=== PATIENT | female | born 1930 | race Asian ===

== ENCOUNTER 2017-04-05 01:13 | Inpatient (IN) | payer OTHER ==
[~2017-04-05] VITALS: Ht 152.4 cm; Wt 37.8 kg
[2017-04-05] VITALS (9 sets, daily range): BP systolic 144–166; BP diastolic 65–76; PULSE 54–76; RESP 15–20; Ht 152.4 cm; Wt 37.8 kg
--- NOTE | 2017-04-05 01:21 | ERD ---
ER Documentation Chief Complaint Chief Complaint Chest congestion HPI The patient is a 87-year-old female, presenting to the ER because of chest congestion for the last 3 weeks, worse tonight. She was seen by her physician recently and treated with cough medication. She is not getting better, therefore the daughter brought her to the emergency department. She does not have chest pain, abdominal pain, vomiting. She does not smoke nor drink Past medical history: Dementia, hypertension, diabetes mellitus, dyslipidemia, CAD, history of CVA Surgical history: Cataract ROS All systems reviewed and are negative except as per history of present illness. Allergies Allergies: Coded Allergies: No Known Allergy (Unverified , 04/05/17) Physical Exam Vitals Vital Signs Date Time Temp Pulse Resp B/P Pulse Ox O2 Delivery O2 Flow Rate FiO2 04/05/17 03:02 56 18 100 Non Rebreather Mask 15.0 04/05/17 02:01 Non Rebreather 15 04/05/17 01:21 97.9 57 18 145/58 94 Physical Exam Const: Labored breathing Head: Atraumatic. Eyes: Normal Conjunctiva. ENT: Normal External Ears, Nose and Mouth. Neck: Full range of motion. No meningismus. Resp: Clear to auscultation bilaterally. Cardio: Regular rate and rhythm. Abd: Soft, non distended, normal bowel sounds, non tender. Skin: No petechiae or rashes. Back: No midline or flank tenderness. Ext: No cyanosis, or edema. Neur: Unable to perform due to her condition Psych: Unable to perform due to her condition. Result Diagram: 04/05/1721904/05/17 022 Results 24 hrs Laboratory Tests Test 04/05/17 01:49 04/05/17 02:14 04/05/17 02:20 04/05/17 02:35 Blood Gas Specimen Source Blood arterial Arterial Blood Date Drawn 04/05/2017 2:05:38 AM Arterial Blood pH (Temp corrected) 7.368 Arterial Blood pCO2 (Temp correct) 47.3mmhg Arterial Blood pO2 (Temp corrected) 40.1mmHG Arterial Blood HCO3 26.6mmol/L Arterial Blood Base Excess 0.9mmol/L Arterial Blood Oxygen Saturation 78.3mmHG Nima Test N/A Arterial Blood Gas Puncture Site Right Brachial Arterial Blood Carboxyhemoglobin 0.3% Arterial Blood Methemoglobin 0.1% Blood Gas A-a O2 Differential 625.6mmHg Oxyhemoglobin Percent 78.0% Total Hemoglobin 11.0g/dl Blood Gas Temperature 37.0C Blood Gas Modality MASK - NRB FiO2 100.0% Blood Gas Critical Value Read Back Jesus JEROME MD Blood Gas Notified Whom AA Blood Gas Notified Time 04/05/2017 2:19:33 AM Bedside Glucose 142mg/dL White Blood Count 6.310^3/ul Red Blood Count 3.2610^6/ul Hemoglobin 9.7g/dl Hematocrit 28.3% Mean Corpuscular Volume 86.8fl Mean Corpuscular Hemoglobin 29.8pg Mean Corpuscular Hemoglobin Concent 34.3g/dl Red Cell Distribution Width 13.5% Platelet Count 91827^3/UL Mean Platelet Volume 9.4fl Neutrophils % 61.5% Lymphocytes % 25.6% Monocytes % 10.0% Eosinophils % 2.1% Basophils % 0.5% Nucleated Red Blood Cells % 0.0/100WBC Neutrophils # 3.910^3/ul Lymphocytes # 1.610^3/ul Monocytes # 0.610^3/ul Eosinophils # 0.110^3/ul Basophils # 0.010^3/ul Nucleated Red Blood Cells # 0.010^3/ul Prothrombin Time 12.5Sec Prothrombin Time Ratio 1.0 INR International Normalized Ratio 0.93 Activated Partial Thromboplast Time 30.3Sec Sodium Level 141mmol/L Potassium Level 4.1mmol/L Chloride Level 103mmol/L Carbon Dioxide Level 32mmol/L Anion Gap 10 Blood Urea Nitrogen 21mg/dl Creatinine 1.31mg/dl Glucose Level 143mg/dl Lactic Acid Level 1.6mmol/L Calcium Level 10.6mg/dl Total Bilirubin 0.2mg/dl Direct Bilirubin 0.00mg/dl Indirect Bilirubin 0.2mg/dl Aspartate Amino Transf (AST/SGOT) 19IU/L Alanine Aminotransferase (ALT/SGPT) 31IU/L Alkaline Phosphatase 71IU/L Troponin I < 0.012ng/ml Total Protein 6.3g/dl Albumin 3.4g/dl Globulin 2.90g/dl Albumin/Globulin Ratio 1.17 Urine Color YELLOW Urine Clarity CLEAR Urine pH 7.0 Urine Specific [place] 1.010 Urine Ketones NEGATIVEmg/dL Urine Nitrite NEGATIVEmg/dL Urine Bilirubin NEGATIVEmg/dL Urine Urobilinogen NEGATIVEmg/dL Urine Leukocyte Esterase NEGATIVELeu/ul Urine Microscopic RBC 1/HPF Urine Microscopic WBC 0/HPF Urine Hemoglobin NEGATIVEmg/dL Urine Glucose NEGATIVEmg/dL Urine Total Protein 2+mg/dl Test 04/05/17 02:37 04/05/17 03:30 Bedside Urine pH (LAB) 7.0 Bedside Urine Protein (LAB) 2+ Bedside Urine Glucose (UA) Negative Bedside Urine Ketones (LAB) Negative Bedside Urine Blood Negative Bedside Urine Nitrite (LAB) Negative Bedside Urine Leukocyte Esterase (L Negative Blood Gas Specimen Source Blood arterial Arterial Blood Date Drawn 04/05/2017 3:20:46 AM Arterial Blood pH (Temp corrected) 7.396 Arterial Blood pCO2 (Temp correct) 46.1mmhg Arterial Blood pO2 (Temp corrected) 85.2mmHG Arterial Blood HCO3 27.7mmol/L Arterial Blood Base Excess 2.3mmol/L Arterial Blood Oxygen Saturation 96.1mmHG Nima Test ACCEPTAB Arterial Blood Gas Puncture Site Left Radial Arterial Blood Carboxyhemoglobin 0.3% Arterial Blood Methemoglobin 0.3% Blood Gas A-a O2 Differential 9.3mmHg Oxyhemoglobin Percent 95.5% Total Hemoglobin 10.8g/dl Blood Gas Temperature 37.0C Blood Gas Modality ROOM AIR FiO2 21.0% Blood Gas Notified Whom MA Blood Gas Notified Time 04/05/2017 3:34:12 AM Current Medications Medications (Trade) Dose Ordered Sig/Dane Route PRN Reason Start Time Stop Time Status Last Admin Dose Admin Levalbuterol (Xopenex Neb) 1.25 mg ONCE ONCE [facility] 04/05/17 03:00 04/05/17 03:01 DC 04/05/17 03:02 Ipratropium Amelia 0.5 mg 0.5 mg ONCE ONCE N 04/05/17 03:00 04/05/17 03:01 DC 04/05/17 03:02 Levofloxacin/ Dextrose (Levaquin 750 Mg/ D5W 150 ml (Pmx)) 150 ml @ 100 mls/hr ONCE ONCE IVPB 04/05/17 04:00 04/05/17 05:29 Procedures/MDM [address] [address] Radiology Main Line: [phone] DIAGNOSTIC IMAGING REPORT Patient: JONAS HEART DOB: 1930 Age: 87 Sex: F MR #: [id number] DOS: 04/05/17 0122 Ordering MD: MIRIAM JEROME MD Location: E/R Room/Bed: PROCEDURE: Portable chest x-ray. CLINICAL INDICATION: Sepsis. TECHNIQUE: Portable AP view of the chest. COMPARISON: None. FINDINGS: No pulmonary edema or conolidation is identified. The cardiac silhouette is magnified. There are aortic calcifications. No pleural effusion is seen. There is no pneumothorax. There are healed right rib fractures. IMPRESSION: 1. No evidence of acute cardiopulmonary disease. 2. Aortic atherosclerosis. RPTAT: HTAR .Bassem Brumfield MD, Date Time Electronically viewed and signed by .Bassem Brumfield MD, MD on 04/05/2017 01:54 .R/ CC: MIRIAM JEROME MD EKG: Read by emergency physician Rate/Rhythm: Normal Sinus Rhythm 60 beats/min QRS, ST, T-waves: No ST elevation, inferior, anterior, lateral ST and T abnormality, prolonged QT Impression: Abnormal EKG MEDICAL MAKING DECISION: The patient is a 87-year-old female, presenting with acute hypoxemia with thick secretion.. She was treated with Xopenex 1.25 mg and Atrovent 0.5 mg nebulizer and had deep suctioning by respiratory therapist with good response. She was treated empirically with Levaquin IV The differential diagnoses considered include but are not limited to asthma, COPD, pneumonia, pulmonary embolus, pleural effusion, congestive heart failure. Departure Diagnosis: Primary Impression: Acute respiratory failure with hypoxemia Additional Impressions: Acute kidney injury Anemia Condition: Stable Comments I discussed the findings with the patient. I discussed the patient with on-call hospitalist Dr. Heath at 3:50 AM. who was made aware of the lab, the treatment, the patient condition. The patient is admitted to Tel Disclaimer: Inadvertent spelling and grammatical errors are likely due to EHR/ dictation software use and do not reflect on the overall quality of patient care. Also, please note that the electronic time recorded on this note does not necessarily reflect the actual time of the patient encounter. MIRIAM JEROME MD Apr 05, 2017 01:21
--- NOTE | 2017-04-05 01:55 | RADRPT ---
PROCEDURE: Portable chest x-ray. CLINICAL INDICATION: Sepsis. TECHNIQUE: Portable AP view of the chest. COMPARISON: None. FINDINGS: No pulmonary edema or conolidation is identified. The cardiac silhouette is magnified. There are ao rtic calcifications. No pleural effusion is seen. There is no pneumothorax. There are healed righ t rib fractures. IMPRESSION: 1. No evidence of acute cardiopulmonary disease. 2. Aortic atherosclerosis. RPTAT: HTAR .Bassem Brumfield MD, MD Date Time Electronically viewed and signed by .Bassem Brumfield MD, MD on 04/05/2017 01:54 .R/
[2017-04-05 02:19] LABS: AADO2 Arterial 625.6 mmHg (7.0-24.0); Arterial Base Excess 0.9 mmol/L (-3.0-3); Arterial COHb 0.3 % (0.0-3.0); Arterial HCO3 26.6 mmol/L (22.0-26.0); Arterial MetHb 0.1 % (0.0-1.5); MODE MASK - NRB
[2017-04-05 02:37] LABS: URINE BLOOD (Dip) POC Negative (NEGATIVE)
[2017-04-05 02:48] LABS: BASOPHILS % 0.5 % (0.0-2.0); EOSINOPHILS # 0.1 10^3/ul (0.0-0.5); EOSINOPHILS % 2.1 % (0.0-7.0); HEMATOCRIT 28.3 % (37.0-47.0); HEMOGLOBIN 9.7 g/dl (12.0-16.0); LYMPHOCYTES # 1.6 10^3/ul (0.8-2.9); LYMPHOCYTES % 25.6 % (15.0-51.0); MEAN CORPUSCULAR HEMOGLOBIN 29.8 pg (29.0-33.0); MEAN CORPUSCULAR HGB CONC 34.3 g/dl (32.0-37.0); MEAN CORPUSCULAR VOLUME 86.8 fl (82.0-101.0); MEAN PLATELET VOLUME 9.4 fl (7.4-10.4); MONOCYTE # 0.6 10^3/ul (0.3-0.9); NEUTROPHIL # 3.9 10^3/ul (1.6-7.5); NEUTROPHILS % 61.5 % (39.0-77.0); PLATELET COUNT 226 10^3/UL (140-415); RED BLOOD COUNT 3.26 10^6/ul (4.20-5.40); RED CELL DISTRIBUTION WIDTH 13.5 % (11.5-14.5); WHITE BLOOD COUNT 6.3 10^3/ul (4.8-10.8)
[2017-04-05] MEDS ORDERED: IPRATROPIUM (NEB) 0.5 MG/2.5 ML AMP HHN ONE (03:00)
[2017-04-05] MEDS ORDERED: LEVALBUTEROL (NEB) 1.25 MG/0.5 ML AMP HHN ONE (03:00)
[2017-04-05 03:10] LABS: INR 0.93; PARTIAL THROMBOPLASTIN TIME 30.3 Sec (25.0-35.0); PROTIME 12.5 Sec (11.9-14.9)
[2017-04-05 03:13] LABS: ALANINE AMINOTRANSFERASE 31 IU/L (13-69); ALBUMIN 3.4 g/dl (3.3-4.9); ALBUMIN/GLOBULIN RATIO 1.17; ALKALINE PHOSPHATASE 71 IU/L (42-121); ANION GAP 10 (8-16); ASPARTATE AMINO TRANSFERASE 19 IU/L (15-46); BILIRUBIN,INDIRECT 0.2 mg/dl (0-1.1); BILIRUBIN,TOTAL 0.2 mg/dl (0.2-1.3); BLOOD UREA NITROGEN 21 mg/dl (7-20); CALCIUM 10.6 mg/dl (8.4-10.2); CARBON DIOXIDE 32 mmol/L (21-31); CHLORIDE 103 mmol/L (97-110); CREATININE 1.31 mg/dl (0.44-1.00); GLUCOSE 143 mg/dl (70-220); POTASSIUM 4.1 mmol/L (3.5-5.1); SODIUM 141 mmol/L (135-144); TOTAL PROTEIN 6.3 g/dl (6.1-8.1)
[2017-04-05 03:24] LABS: TROPONIN-I < 0.012 ng/ml (0.00-0.12)
[2017-04-05 03:24] LABS: ADD UMIC YES; UR ASCORBIC ACID NEGATIVE (NEGATIVE); UR BILIRUBIN (Dip) NEGATIVE (NEGATIVE); UR BLOOD (Dip) NEGATIVE (NEGATIVE); UR CLARITY CLEAR (CLEAR); UR COLOR YELLOW (YELLOW); UR GLUCOSE (Dip) NEGATIVE (NEGATIVE); UR KETONES (Dip) NEGATIVE (NEGATIVE); UR LEUKOCYTE ESTERASE (Dip) NEGATIVE Leu/ul (NEGATIVE); UR NITRITE (Dip) NEGATIVE (NEGATIVE); UR RBC 1 /HPF (0-5); UR TOTAL PROTEIN (Dip) 2+ mg/dl (NEGATIVE); UR UROBILINOGEN (Dip) NEGATIVE (NEGATIVE)
[2017-04-05 03:35] LABS: AADO2 Arterial 9.3 mmHg (7.0-24.0); Allen Test ACCEPTAB; Arterial Base Excess 2.3 mmol/L (-3.0-3); Arterial COHb 0.3 % (0.0-3.0); Arterial Fraction of Oxyhgb 95.5 % (93.0-99.0); Arterial HCO3 27.7 mmol/L (22.0-26.0); Arterial MetHb 0.3 % (0.0-1.5); Arterial Total Hemglobin 10.8 g/dl (12.0-18.0); MODE ROOM AIR
[2017-04-05] MEDS ORDERED: LEVOFLOXACIN 750MG/D5W (PMX) 150 ML IVPB ONE (04:00)
[2017-04-05] MEDS ORDERED: SOD CHLORIDE 0.9% 1,000 ML IV SCH (04:51)
[2017-04-05] MEDS ORDERED: ONDANSETRON 4 MG INJ IV PRN (05:00)
[2017-04-05] MEDS ORDERED: morphine 2 MG INJ IV PRN (05:00)
[2017-04-05] MEDS ORDERED: ALBUTEROL/IPRATROPIUM (NEB) 3 ML AMP HHN PRN (05:00)
[2017-04-05] MEDS ORDERED: NACL 0.9% 3 ML SYG IV SCH (05:00)
[2017-04-05] MEDS ORDERED: ACETAMINOPHEN 325 MG TAB PO PRN (05:00)
[2017-04-05] MEDS ORDERED: GLUCOSE GEL 15 GRAM TUBE BUCCAL PRN (05:30)
[2017-04-05] MEDS ORDERED: GLUCAGON 1 MG INJ IM PRN (05:30)
[2017-04-05] MEDS ORDERED: GLUCOSE GEL 15 GRAM TUBE PO PRN ×2 (05:30)
[2017-04-05] MEDS ORDERED: DEXTROSE 50% 50 ML SYRINGE IV PRN ×2 (05:30)
[2017-04-05] MEDS: INSULIN ASPART [NOVOLOG] 3 ML PEN SC SCH ×4 (07:55→23:15)
--- NOTE | 2017-04-05 09:14 | HP ---
Date/Time of Note Date/Time of Note DATE: 04/05/17 TIME: 09:08 Assessment/Plan VTE Prophylaxis VTE Prophylaxis Intervention: heparin Lines/Catheters IV Catheter Type (from Nrs): Mid Line Urinary Cath still in place: No Assessment/Plan Assessment/Plan 1. Hypoxic respiratory distress -Patient with initial PO2 of 40% on 100% FiO2 with improvement to 85% on room air after deep suctioning for a finding of coarse breath sounds. Chest x-ray is nondiagnostic. -Plan is for supplemental oxygen, bronchodilators, steroid and IV antibiotics -Pulmonary consult -If patient again becomes hypoxic, will obtain chest CT 2. Hypertension Continue antihypertensives adjustment as needed 3. Diabetes Insulin while in-house 4. Dyslipidemia Continue outpatient medication 5. Presumed CKD We will give IV fluids. If worsening kidney function, will obtain renal ultrasound and nephrology consult 6. Alzheimer's dementia -Continue supportive care HPI/ROS Admit Date/Time Admit Date/Time Apr 05, 2017 at 03:52 Hx of Present Illness This is an 87-year-old female with a history of hypertension, dementia, dyslipidemia, diabetes who was brought to the ER for acute onset shortness of breath. Symptoms started a few hours prior to arrival. Per ER, patient initially had coarse breath sounds and was hypoxic with O2 sat in the high 70s. Deep suctioning was performed with improvement in hypoxia. Initial ABG showed a PO2 of 40% 100% FiO2 which improved after suctioning to 85% on room air. Chest x-ray was no acute findings. PMH/Family/Social Social History Smoking Status: Never smoker Exam/Review of Systems Vital Signs Vitals Vital Signs Date Time Temp Pulse Resp B/P Pulse Ox O2 Delivery O2 Flow Rate FiO2 04/05/17 08:00 54 04/05/17 07:40 98.0 16 154/68 96 04/05/17 04:42 Room Air 04/05/17 03:02 15.0 Exam Constitutional: other (Not fully oriented. No acute distress) Head: atraumatic, normocephalic Eyes: PERRL Respiratory: diminished breath sounds Cardiovascular: nl pulses, regular rate and rhythm Gastrointestinal: soft Extremities: normal pulses Labs Result Diagram: 04/05/1721904/05/17 022 Medications Medications Current Medications Sodium Chloride (NS) 1,000 ml @ 75 mls/hr [id number] IV Last administered on 04/05t 06:11; Admin Dose 75 MLS/HR; Start 04/05/17 at 04:51; Stop 04/05/17 at 16: 00 Ondansetron HCl (Zofran Inj) 4 mg Q6H PRN IV NAUSEA AND/OR VOMITING; Start 04/05/17 at 05:00 Acetaminophen (Tylenol Tab) 650 mg Q6H PRN PO PAIN LEVEL 1-3 OR FEVER; Start 04/05/17 at 05:00 Morphine Sulfate (morphine) 2 mg Q4H PRN IV PAIN LEVEL 7-10; Start 04/05/17 at 05:00 Heparin Sodium (Porcine) (Heparin (5000 Units/0.5 ml)) 5,000 unit Q12 SC ; Start 04/05/17 at 09:00 Diagnostic Test (Pha) (Accu-Chek) 1 ea 02 XX ; Start 04/06/17 at 02:00 Insulin Glargine (Lantus) 10 unit QHS SC ; Start 04/05/17 at 21:00 Methylprednisolone Sodium Succinate (Solu-Medrol) 40 mg DAILY IV ; Start at 09:00 Miscellaneous Information 1 ea NOTE XX ; Start 04/05/17 at 05:30 Glucose (Glutose) 15 gm Q15M PRN PO DECREASED GLUCOSE; Start 04/05/17 at 05:30 Glucose (Glutose) 22.5 gm Q15M PRN PO DECREASED GLUCOSE; Start 04/05/17 at 05: 30 Dextrose (D50w Syringe) 25 ml Q15M PRN IV DECREASED GLUCOSE; Start 04/05/17 at 05:30 Dextrose (D50w Syringe) 50 ml Q15M PRN IV DECREASED GLUCOSE; Start 04/05/17 at 05:30 Glucagon (Glucagen) 1 mg Q15M PRN IM DECREASED GLUCOSE; Start 04/05/17 at 05:30 Glucose (Glutose) 15 gm Q15M PRN BUCCAL DECREASED GLUCOSE; Start 04/05/17 at 05 :30 KALA FREEDMAN MD Apr 05, 2017 09:14
[2017-04-05] MEDS ORDERED: LEVOFLOXACIN 500MG/D5W (PMX) 100 ML IVPB SCH (09:30)
[2017-04-05] MEDS: METHYLPREDNISOLONE 40 MG INJ IV SCH (09:52)
[2017-04-05] MEDS: HEPARIN 5,000 UNIT/0.5 ML VIAL SC SCH ×2 (09:53→23:22)
[2017-04-05] MEDS ORDERED: LEVOFLOXACIN 250MG/D5W (PMX) 50 ML IVPB SCH (10:00)
--- NOTE | 2017-04-05 12:49 | CONS ---
DATE OF ADMISSION: 04/05/2017 DATE OF CONSULTATION: PULMONARY CONSULTATION. REASON FOR CONSULTATION: Shortness of breath. Thank you, Dr. Heath, for this consultation. HISTORY OF PRESENT ILLNESS: This is a pleasant 87-year-old lady brought in to the ER for evaluation of shortness of breath, sudden onset with mild hypoxemia. No nausea, no vomiting, no recent travel history. No hemoptysis or hematemesis. The patient has history of dementia, is unable to give me further details. DIAGNOSTIC DATA: Chest x-ray on admission showed no infiltrates or effusions. She had no leukocyto sis. PAST MEDICAL HISTORY: 1. Dementia. 2. Hypertension. 3. Diabetes mellitus. MEDICATIONS: Per chart. ALLERGIES: NONE. SOCIAL HISTORY: Nonsmoker, no alcohol, no history of drug use. FAMILY HISTORY: Noncontributory. SYSTEMS REVIEW: A 12-point review of systems unable to perform secondary to dementia. PHYSICAL EXAMINATION: GENERAL: Elderly-appearing lady, responds to her name, appears comfortable at rest, no acute distre ss. VITAL SIGNS: Currently afebrile, pulse is 54, blood pressure 154/68, O2 saturation 96% on room air. NECK: Supple. No JVD or lymphadenopathy. CARDIAC: S1, S2, no added sounds or murmurs. CHEST: Diminished air entry bilaterally. ABDOMEN: Soft, nontender. No guarding or rebound. EXTREMITIES: No cyanosis, clubbing, edema. NEUROLOGIC: Grossly intact. No focal deficits. IMAGING: Chest x-ray was reviewed, no infiltrates or effusions. LABORATORY DATA: Initial PaO2 was 40 on nonrebreather now 85 on room air. White count 6.3, hemoglo bin 9.7, platelets of 226. INR 0.93. EKG showed no acute ischemic changes. IMPRESSION AND PLAN: 1. Possible aspiration pneumonitis. 2. History of underlying dementia. 3. History of diabetes mellitus. PLAN: 1. Speech therapy evaluation. 2. Short course of steroids and antibiotics. 3. Discussed code status and goals of care. 4. DVT and GI prophylaxis. Dictated By: DANNY STACK MD SV/NTS Conf#: [id number] DID#: [id number] CC: DANNY STACK MD; KALA HEATH MD;*EndCC*
--- NOTE | 2017-04-05 14:49 | CONS ---
Date/Time of Note Date/Time of Note DATE: 04/05/17 TIME: 14:48 Assessment/Plan Assessment/Plan Additional Assessment/Plan 87 yo female with 1) Shortness of breath 2) Hypoxia 3) Likely Aspiration 4) Esdras vs CKD 5) Mixed acid base disorder 6) Elevated lactic acid 7) Chronic HTN, controlled. 8) Proteinuria Cont current Rx and plan Will send Urine studies Repeat Chemistry cont to monitor UO, acid base state, volume status and renal function daily Thank you for the opportunity to participate in the care of ms [place] Consultation Date/Type/Reason Admit Date/Time Apr 05, 2017 at 03:52 Date of Consultation: Apr 05, 2017 Type of Consultation: Renal Reason for Consultation ESDRAS Referring Provider: JUAN HOLLAND of Present Illness 87-year-old female with a history of hypertension, chronic, dementia, dyslipidemia, diabetes who sent for evaluation of acute onset shortness of breath. Found to be hypoxic in ED S/p sunctioning with improvement in oxygenation. Chest x-ray was no acute findings. Concern for aspiration, Pt started empirically on ABx, Found to have elevated Cr on admission. Nephrology consulted for ESDRAS vs CKD. Constitutional: requiring O2 Past Medical History Medical History: congestive heart failure, coronary artery disease, diabetes, hypertension Past Surgical History Past Surgical Hx: other (unknown) Family History Significant Family History: no pertinent family hx Social History Alcohol Use: none Smoking Status: Never smoker Drug Use: none Exam/Review of Systems Vital Signs Vitals Vital Signs Date Time Temp Pulse Resp B/P Pulse Ox O2 Delivery O2 Flow Rate FiO2 04/05/17 12:00 66 04/05/17 08:00 Nasal Cannula 2.0 04/05/17 07:40 98.0 16 154/68 96 Exam Constitutional: alert, frail, No distress Psych: No anxiety Head: atraumatic Eyes: EOMI Neck: No jvd Respiratory: crackles/rales, No diminished breath sounds, No labored breathing Cardiovascular: regular rate and rhythm, No edema Gastrointestinal: non-tender, soft, No rebound or guarding Extremities: No edema Neurological: confused, lethargic, nl speech Skin: No diaphoresis Results Result Diagram: 04/05/1721904/05/17 022 Results 24 hrs Laboratory Tests Test 04/05/17 01:49 04/05/17 02:14 04/05/17 02:20 04/05/17 02:35 Blood Gas Specimen Source Blood arterial Arterial Blood Date Drawn 04/05/2017 2:05:38 AM Arterial Blood pH (Temp corrected) 7.368 Arterial Blood pCO2 (Temp correct) 47.3 H Arterial Blood pO2 (Temp corrected) 40.1 *L Arterial Blood HCO3 26.6 H Arterial Blood Base Excess 0.9 Arterial Blood Oxygen Saturation 78.3 L Nima Test N/A Arterial Blood Gas Puncture Site Right Brachial Arterial Blood Carboxyhemoglobin 0.3 Arterial Blood Methemoglobin 0.1 Blood Gas A-a O2 Differential 625.6 H Oxyhemoglobin Percent 78.0 L Total Hemoglobin 11.0 L Blood Gas Temperature 37.0 Blood Gas Modality MASK - NRB FiO2 100.0 Blood Gas Critical Value Read Back Jesus JEROME MD Blood Gas Notified Whom AA Blood Gas Notified Time 04/05/2017 2:19:33 AM Bedside Glucose 142 White Blood Count 6.3 Red Blood Count 3.26 L Hemoglobin 9.7 L Hematocrit 28.3 L Mean Corpuscular Volume 86.8 Mean Corpuscular Hemoglobin 29.8 Mean Corpuscular Hemoglobin Concent 34.3 Red Cell Distribution Width 13.5 Platelet Count 226 Mean Platelet Volume 9.4 Neutrophils % 61.5 Lymphocytes % 25.6 Monocytes % 10.0 Eosinophils % 2.1 Basophils % 0.5 Nucleated Red Blood Cells % 0.0 Neutrophils # 3.9 Lymphocytes # 1.6 Monocytes # 0.6 Eosinophils # 0.1 Basophils # 0.0 Nucleated Red Blood Cells # 0.0 Prothrombin Time 12.5 Prothrombin Time Ratio 1.0 INR International Normalized Ratio 0.93 Activated Partial Thromboplast Time 30.3 Sodium Level 141 Potassium Level 4.1 Chloride Level 103 Carbon Dioxide Level 32 H Anion Gap 10 Blood Urea Nitrogen 21 H Creatinine 1.31 H Glucose Level 143 Lactic Acid Level 1.6 Calcium Level 10.6 H Total Bilirubin 0.2 Direct Bilirubin 0.00 Indirect Bilirubin 0.2 Aspartate Amino Transf (AST/SGOT) 19 Alanine Aminotransferase (ALT/SGPT) 31 Alkaline Phosphatase 71 Troponin I < 0.012 Total Protein 6.3 Albumin 3.4 Globulin 2.90 Albumin/Globulin Ratio 1.17 Urine Color YELLOW Urine Clarity CLEAR Urine pH 7.0 Urine Specific [place] 1.010 Urine Ketones NEGATIVE Urine Nitrite NEGATIVE Urine Bilirubin NEGATIVE Urine Urobilinogen NEGATIVE Urine Leukocyte Esterase NEGATIVE Urine Microscopic RBC 1 Urine Microscopic WBC 0 Urine Hemoglobin NEGATIVE Urine Glucose NEGATIVE Urine Total Protein 2+ H Test 04/05/17 02:37 04/05/17 03:30 04/05/17 04:40 04/05/17 06:57 Bedside Urine pH (LAB) 7.0 Bedside Urine Protein (LAB) 2+ H Bedside Urine Glucose (UA) Negative Bedside Urine Ketones (LAB) Negative Bedside Urine Blood Negative Bedside Urine Nitrite (LAB) Negative Bedside Urine Leukocyte Esterase (L Negative Blood Gas Specimen Source Blood arterial Arterial Blood Date Drawn 04/05/2017 3:20:46 AM Arterial Blood pH (Temp corrected) 7.396 Arterial Blood pCO2 (Temp correct) 46.1 H Arterial Blood pO2 (Temp corrected) 85.2 Arterial Blood HCO3 27.7 H Arterial Blood Base Excess 2.3 Arterial Blood Oxygen Saturation 96.1 Nima Test ACCEPTAB Arterial Blood Gas Puncture Site Left Radial Arterial Blood Carboxyhemoglobin 0.3 Arterial Blood Methemoglobin 0.3 Blood Gas A-a O2 Differential 9.3 Oxyhemoglobin Percent 95.5 Total Hemoglobin 10.8 L Blood Gas Temperature 37.0 Blood Gas Modality ROOM AIR FiO2 21.0 Blood Gas Notified Whom MA Blood Gas Notified Time 04/05/2017 3:34:12 AM Lactic Acid Level 1.3 2.1 H Test 04/05/17 08:42 04/05/17 11:44 Bedside Glucose 101 149 Imaging Free Text/Dictation PROCEDURE: Portable chest x-ray. CLINICAL INDICATION: Sepsis. TECHNIQUE: Portable AP view of the chest. COMPARISON: None. FINDINGS: No pulmonary edema or conolidation is identified. The cardiac silhouette is magnified. There are aortic calcifications. No pleural effusion is seen. There is no pneumothorax. There are healed right rib fractures. IMPRESSION: 1. No evidence of acute cardiopulmonary disease. 2. Aortic atherosclerosis. RPTAT: HTAR .Bassem Brumfield MD, Date Time Electronically viewed and signed by .Bassem Brumfield MD, on 04/05/2017 01:54 Medications Medications Current Medications Sodium Chloride (NS) 1,000 ml @ 75 mls/hr [id number] IV Last administered on 04/05 06:11; Admin Dose 75 MLS/HR; Start 04/05/17 at 04:51; Stop 04/05/17 at 16: 00 Ondansetron HCl (Zofran Inj) 4 mg Q6H PRN IV NAUSEA AND/OR VOMITING; Start 04/05/17 at 05:00 Acetaminophen (Tylenol Tab) 650 mg Q6H PRN PO PAIN LEVEL 1-3 OR FEVER; Start 04/05/17 at 05:00 Morphine Sulfate (morphine) 2 mg Q4H PRN IV PAIN LEVEL 7-10; Start 04/05/17 at 05:00 Heparin Sodium (Porcine) (Heparin (5000 Units/0.5 ml)) 5,000 unit Q12 SC Last administered on 04/05/17 09:53; Admin Dose 5,000 UNIT; Start 04/05/17 at 09:00 Diagnostic Test (Pha) (Accu-Chek) 1 ea 02 XX ; Start 04/06/17 at 02:00 Insulin Glargine (Lantus) 10 unit QHS SC ; Start 04/05/17 at 21:00 Methylprednisolone Sodium Succinate (Solu-Medrol) 40 mg DAILY IV Last administered on 04/05/17 09:52; Admin Dose 40 MG; Start 04/05/17 at 09:00 Miscellaneous Information 1 ea NOTE XX ; Start 04/05/17 at 05:30 Glucose (Glutose) 15 gm Q15M PRN PO DECREASED GLUCOSE; Start 04/05/17 at 05:30 Glucose (Glutose) 22.5 gm Q15M PRN PO DECREASED GLUCOSE; Start 04/05/17 at 05: 30 Dextrose (D50w Syringe) 25 ml Q15M PRN IV DECREASED GLUCOSE; Start 04/05/17 at 05:30 Dextrose (D50w Syringe) 50 ml Q15M PRN IV DECREASED GLUCOSE; Start 04/05/17 at 05:30 Glucagon (Glucagen) 1 mg Q15M PRN IM DECREASED GLUCOSE; Start 04/05/17 at 05:30 Glucose 15 gm 15 gm Q15M PRN BUCCAL DECREASED GLUCOSE; Start 04/05/17 at 05:30 Levofloxacin/ Dextrose (Levaquin 250 Mg/ D5W 50 ml (Pmx)) 50 ml @ 100 mls/hr Q48H IVPB ; Start 04/07/17 at 10:00 PRATEEK PURVIS MD Apr 05, 2017 14:49
--- NOTE | 2017-04-05 16:23 | RADRPT ---
Echocardiogram Report Patient Name: JONAS HEART Gender: Female Date: 1930 Study Date: 05-Apr-2017 [employer] Operator: Nery Aguilar [facility] Location: [id number] Ref. Physician: KALA FREEDMAN Quality: Good Procedures: Transthoracic echocardiogram with complete 2D, M-Mode, and doppler examination. Indications: hypoxia. 2D/M Mode Doppler Measurement Value Normal Ranges Measurement Value Normal Ranges LVIDd 2D 3.7 3.5 - 5.6 cm AV Peak John 1.3 m/sec LVIDs 2D 1.9 2.1 - 4.1 cm AV Peak PG 6.5 mmHg LVPWd 2D 1.1 0.6 - 1.1 cm AI Peak PG 46.3 mmHg IVSd 2D 1.1 0.6 - 1.1 cm AI Peak John 3.4 m/sec AoR Diam 2D 2.9 2.0 - 3.7 cm AI PHT 866.9 msec EDV 2D 57.3 cm3 LVOT Peak John 0.9 m/sec ESV 2D 6.7 cm3 LVOT Peak PG 2.9 mmHg LA Dimen 2D 2.8 2.3 - 4.0 cm MV E Peak John 0.5 m/sec MV A Peak John 0.9 m/sec MV E/A 0.5 MV Decel Time 199 msec MV Decel Dougherty 2 MV E/A 0.5 TR Peak John 3.3 m/sec TR Peak PG 42.4 mmHg RVSP 45.0 mmHg Findings Left Ventricle: Hyperdynamic left ventricular systolic function. Normal left ventricular cavity size. Mild concentric left ventricular hypertrophy. Ejection fraction is visually estimated at 70 %. Tissue Doppler/Mitral Doppler indices are consistent with impaired relaxation (Stage I diastolic dysfunction). Right Ventricle: Normal right ventricular size. Normal right ventricular systolic function. Left Atrium: The left atrium is normal in size. Right Atrium: The right atrium is normal in size. Mitral Valve: Normal appearance of the mitral valve. Mild mitral annular calcification. Mild mitral valve regurgitation. Aortic Valve: No hemodynamically significant aortic stenosis by doppler. Aortic cusps appear mildly calcified. Mild aortic valve regurgitation. Tricuspid Valve: Normal appearance of the tricuspid valve. Estimated peak PA systolic pressure 45 mmHg. There is mild tricuspid regurgitation. Pulmonic Valve: Pulmonic valve not well visualized. There is trace pulmonic regurgitation. Pericardium: Normal pericardium with no significant pericardial effusion. Aorta: Normal aortic root. IVC: Normal size and normal respiratory collapse consistent with normal right atrial pressure. Conclusions 1.The left ventricle is normal in size with hyperdynamic systolic function. 2.Estimated left ventricular ejection fraction of 70%. 3.Mild concentric left ventricular hypertrophy. Grade 1 diastolic dysfunction. 4.Estimated RVSP of 45 mmHg. Normal right atrial pressure. Electronically Signed By: Salomon Michel 05-Apr-2017 16:22:51 -0800 Patient Name: JONAS HEART Study Date: 05-Apr-[id number]
[2017-04-05] MEDS ORDERED: INSULIN GLARGINE [LANtus] 3 ML PEN SC SCH (21:00)
[2017-04-06] VITALS (14 sets, daily range): BP systolic 127–185; BP diastolic 62–90; PULSE 68–106; RESP 17–18
[2017-04-06] MEDS ORDERED: ACCU-CHEK XX SCH (02:00)
[2017-04-06] MEDS: INSULIN ASPART [NOVOLOG] 3 ML PEN SC SCH ×3 (07:55→17:15)
[2017-04-06] MEDS: METHYLPREDNISOLONE 40 MG INJ IV SCH (08:17)
[2017-04-06] MEDS: hydrALAzine 20 MG INJ IV PRN ×2 (08:18→16:21)
[2017-04-06] MEDS: HEPARIN 5,000 UNIT/0.5 ML VIAL SC SCH (08:20)
[2017-04-06 08:58] LABS: BASOPHILS % 0.1 % (0.0-2.0); HEMATOCRIT 29.8 % (37.0-47.0); HEMOGLOBIN 10.2 g/dl (12.0-16.0); LYMPHOCYTES # 1.1 10^3/ul (0.8-2.9); MEAN CORPUSCULAR HEMOGLOBIN 29.7 pg (29.0-33.0); MEAN CORPUSCULAR HGB CONC 34.2 g/dl (32.0-37.0); MEAN CORPUSCULAR VOLUME 86.6 fl (82.0-101.0); MEAN PLATELET VOLUME 9.6 fl (7.4-10.4); MONOCYTE # 0.9 10^3/ul (0.3-0.9); MONOCYTES % 7.5 % (0.0-11.0); NEUTROPHIL # 9.8 10^3/ul (1.6-7.5); NEUTROPHILS % 82.9 % (39.0-77.0); PLATELET COUNT 234 10^3/UL (140-415); RED BLOOD COUNT 3.44 10^6/ul (4.20-5.40); RED CELL DISTRIBUTION WIDTH 13.5 % (11.5-14.5); WHITE BLOOD COUNT 11.9 10^3/ul (4.8-10.8)
[2017-04-06 09:34] LABS: ALBUMIN/GLOBULIN RATIO 1.21; BILIRUBIN,INDIRECT 0.2 mg/dl (0-1.1); BILIRUBIN,TOTAL 0.2 mg/dl (0.2-1.3); CALCIUM 10.2 mg/dl (8.4-10.2); CREATININE 1.37 mg/dl (0.44-1.00); MAGNESIUM 1.5 mg/dl (1.7-2.5); POTASSIUM 4.1 mmol/L (3.5-5.1); TOTAL PROTEIN 7.3 g/dl (6.1-8.1)
[2017-04-06 14:40] LABS: PROTEIN/CREAT RATIO 4.36 RATIO
--- NOTE | 2017-04-06 14:53 | CONS ---
Date/Time of Note Date/Time of Note DATE: 04/06/17 TIME: 14:52 Consult Date/Type/Reason Admit Date/Time Apr 05, 2017 at 03:52 Initial Consult Date 04/05/17 Type of Consultation: Pulmonary Ordering Provider: JUAN HOLLAND Subjective Patient comfortable this morning. No new events Objective Vital Signs Date Time Temp Pulse Resp B/P Pulse Ox O2 Delivery O2 Flow Rate FiO2 04/06/17 12:57 82 04/06/17 11:19 98.0 18 157/71 97 04/06/17 08:00 Nasal Cannula 2.0 Intake and Output 04/05/17 04/05/17 04/06/17 15:00 23:00 07:00 Intake Total 400 ml 50 ml Output Total 450 ml 1000 ml Balance -50 ml -950 ml Exam PHYSICAL EXAMINATION: GENERAL: Elderly-appearing lady, responds to her name, appears comfortable at rest, no acute distress. VITAL SIGNS: NECK: Supple. No JVD or lymphadenopathy. CARDIAC: S1, S2, no added sounds or murmurs. CHEST: Diminished air entry bilaterally. ABDOMEN: Soft, nontender. No guarding or rebound. EXTREMITIES: No cyanosis, clubbing, edema. NEUROLOGIC: Grossly intact. No focal deficits. Results/Medications Result Diagram: 04/06/17 0758 04/06/17 0757 Results 24 hrs Laboratory Tests Test 04/05/17 14:56 04/05/17 17:55 04/05/17 23:10 04/06/17 02:27 Lactic Acid Level 1.2 Bedside Glucose 187 192 151 Test 04/06/17 07:57 04/06/17 07:58 04/06/17 08:14 04/06/17 08:30 Sodium Level 145 H Potassium Level 4.1 Chloride Level 105 Carbon Dioxide Level 30 Anion Gap 14 Blood Urea Nitrogen 26 H Creatinine 1.37 H Glucose Level 95 # Calcium Level 10.2 Magnesium Level 1.5 L Total Bilirubin 0.2 Direct Bilirubin 0.00 Indirect Bilirubin 0.2 Aspartate Amino Transf (AST/SGOT) 24 Alanine Aminotransferase (ALT/SGPT) 32 Alkaline Phosphatase 83 Total Protein 7.3 # Albumin 4.0 Globulin 3.30 H Albumin/Globulin Ratio 1.21 Triglycerides Level 103 Cholesterol Level 154 LDL Cholesterol, Calculated 82 HDL Cholesterol 51 Cholesterol/HDL Ratio 3.0 White Blood Count 11.9 #H Red Blood Count 3.44 L Hemoglobin 10.2 L Hematocrit 29.8 L Mean Corpuscular Volume 86.6 Mean Corpuscular Hemoglobin 29.7 Mean Corpuscular Hemoglobin Concent 34.2 Red Cell Distribution Width 13.5 Platelet Count 234 Mean Platelet Volume 9.6 Neutrophils % 82.9 H Lymphocytes % 9.0 L Monocytes % 7.5 Eosinophils % 0.0 Basophils % 0.1 Nucleated Red Blood Cells % 0.0 Neutrophils # 9.8 H Lymphocytes # 1.1 Monocytes # 0.9 Eosinophils # 0.0 Basophils # 0.0 Nucleated Red Blood Cells # 0.0 Hemoglobin A1c 6.1 H Bedside Glucose 104 Urine Random Creatinine 22.90 Urine Protein/Creatinine Ratio 4.36 Urine Total Protein 100.0 H Test 04/06/17 12:08 Bedside Glucose 179 Medications Current Medications Ondansetron HCl (Zofran Inj) 4 mg Q6H PRN IV NAUSEA AND/OR VOMITING; Start 04/05/17 at 05:00 Acetaminophen (Tylenol Tab) 650 mg Q6H PRN PO PAIN LEVEL 1-3 OR FEVER; Start 04/05/17 at 05:00 Morphine Sulfate (morphine) 2 mg Q4H PRN IV PAIN LEVEL 7-10 Last administered on 04/06/17 03:06; Admin Dose 2 MG; Start 04/05/17 at 05:00 Heparin Sodium (Porcine) (Heparin (5000 Units/0.5 ml)) 5,000 unit Q12 SC Last administered on 04/06/17 08:20; Admin Dose 5,000 UNIT; Start 04/05/17 at 09:00 Diagnostic Test (Pha) (Accu-Chek) 1 ea 02 XX Last administered on 04/06/17 02: 36; Admin Dose 1 EA; Start 04/06/17 at 02:00 Insulin Glargine (Lantus) 10 unit QHS SC Last administered on 04/05/17 23:21; Admin Dose 10 UNIT; Start 04/05/17 at 21:00 Methylprednisolone Sodium Succinate (Solu-Medrol) 40 mg DAILY IV Last administered on 04/06/17 08:17; Admin Dose 40 MG; Start 04/05/17 at 09:00 Miscellaneous Information 1 ea NOTE XX ; Start 04/05/17 at 05:30 Glucose (Glutose) 15 gm Q15M PRN PO DECREASED GLUCOSE; Start 04/05/17 at 05:30 Glucose (Glutose) 22.5 gm Q15M PRN PO DECREASED GLUCOSE; Start 04/05/17 at 05: 30 Dextrose (D50w Syringe) 25 ml Q15M PRN IV DECREASED GLUCOSE; Start 04/05/17 at 05:30 Dextrose (D50w Syringe) 50 ml Q15M PRN IV DECREASED GLUCOSE; Start 04/05/17 at 05:30 Glucagon (Glucagen) 1 mg Q15M PRN IM DECREASED GLUCOSE; Start 04/05/17 at 05:30 Glucose 15 gm 15 gm Q15M PRN BUCCAL DECREASED GLUCOSE; Start 04/05/17 at 05:30 Levofloxacin/ Dextrose (Levaquin 250 Mg/ D5W 50 ml (Pmx)) 50 ml @ 100 mls/hr Q48H IVPB ; Start 04/07/17 at 10:00 Hydralazine HCl (Apresoline) 10 mg Q4H PRN IV ELEVATED SYSTOLIC BP Last administered on 04/06/17t 08:18; Admin Dose 10 MG; Start 04/06/17 at 04:30 Assessment/Plan Chief Complaint/Hosp Course IMPRESSION AND PLAN: 1. Possible aspiration pneumonitis. Clinically improved today. Appreciate speech therapy recommendations. 2. History of underlying dementia. 3. History of diabetes mellitus. PLAN: 1. Speech therapy recommendations aspiration precautions 2. Consider DC steroids and antibiotics 3. Discussed code status and goals of care. 4. DVT and GI prophylaxis. Discharge planning okay from primary standpoint Problems: DANNY STACK MD, [facility] Apr 06, 2017 14:53
--- NOTE | 2017-04-06 15:27 | DS ---
Date/Time of Note Date/Time of Note DATE: 04/06/17 TIME: 15:22 Discharge Summary Admission/Discharge Info Admit Date/Time Apr 05, 2017 at 03:52 Discharge Date/Time Discharge Diagnosis 1. Aspiration pneumonitis, resolved, aspiration precaution 2. Acute respiratory failure, resolved 3. Hypertension, resume antihypertensives wit norvasc and coreg 4. DM, on metformin 5. Dyslipidemia, on lipitor 6. Gout, on allopurinol 7. Dementia, chronic Patient Condition: Stable Hospital Course 87 years old demented patient with HTN, DM, dyslipidemia, and gout choked with shortness of breath at home. She was found hypoxic in ER. CXR no pulmonary infiltrates. Patient is treated with antibiotics. Patient is afebrile, no respiratory distress. She and her daughter are instructed for aspiration precaution. Patient and her daughter are instructed to resume all home medications and follow up with PCP in one week. She got dulculax for constipation. Home Meds No Active Prescriptions or Reported Meds Follow-up Plan PCP in one week Primary Care Provider Not On Staff Doctor Pending Labs Laboratory Tests Test 04/05/17 17:55 04/05/17 23:10 04/06/17 02:27 04/06/17 07:57 Bedside Glucose 187mg/dL (70-220) 192mg/dL (70-220) 151mg/dL (70-220) Sodium Level 145mmol/L (135-144) Potassium Level 4.1mmol/L (3.5-5.1) Chloride Level 105mmol/L (97-110) Carbon Dioxide Level 30mmol/L (21-31) Anion Gap 14 (8-16) Blood Urea Nitrogen 26mg/dl (7-20) Creatinine 1.37mg/dl (0.44-1.00) Glucose Level 95mg/dl (70-220) Calcium Level 10.2mg/dl (8.4-10.2) Magnesium Level 1.5mg/dl (1.7-2.5) Total Bilirubin 0.2mg/dl (0.2-1.3) Direct Bilirubin 0.00mg/dl (0.00-0.20) Indirect Bilirubin 0.2mg/dl (0-1.1) Aspartate Amino Transf (AST/SGOT) 24IU/L (15-46) Alanine Aminotransferase (ALT/SGPT) 32IU/L (13-69) Alkaline Phosphatase 83IU/L (42-121) Total Protein 7.3g/dl (6.1-8.1) Albumin 4.0g/dl (3.3-4.9) Globulin 3.30g/dl (1.3-3.2) Albumin/Globulin Ratio 1.21 Triglycerides Level 103mg/dl (0-149) Cholesterol Level 154mg/dl (100-200) LDL Cholesterol, Calculated 82mg/dl HDL Cholesterol 51mg/dl (33-92) Cholesterol/HDL Ratio 3.0RATIO Test 04/06/17 07:58 04/06/17 08:14 04/06/17 08:30 04/06/17 12:08 White Blood Count 11.910^3/ul (4.8-10.8) Red Blood Count 3.4410^6/ul (4.20-5.40) Hemoglobin 10.2g/dl (12.0-16.0) Hematocrit 29.8% (37.0-47.0) Mean Corpuscular Volume 86.6fl (82.0-101.0) Mean Corpuscular Hemoglobin 29.7pg (29.0-33.0) Mean Corpuscular Hemoglobin Concent 34.2g/dl (32.0-37.0) Red Cell Distribution Width 13.5% (11.5-14.5) Platelet Count 11198^3/UL (140-415) Mean Platelet Volume 9.6fl (7.4-10.4) Neutrophils % 82.9% (39.0-77.0) Lymphocytes % 9.0% (15.0-51.0) Monocytes % 7.5% (0.0-11.0) Eosinophils % 0.0% (0.0-7.0) Basophils % 0.1% (0.0-2.0) Nucleated Red Blood Cells % 0.0/100WBC (0.0-0.0) Neutrophils # 9.810^3/ul (1.6-7.5) Lymphocytes # 1.110^3/ul (0.8-2.9) Monocytes # 0.910^3/ul (0.3-0.9) Eosinophils # 0.010^3/ul (0.0-0.5) Basophils # 0.010^3/ul (0.0-0.1) Nucleated Red Blood Cells # 0.010^3/ul (0.0-0.0) Hemoglobin A1c 6.1% (0-5.9) Bedside Glucose 104mg/dL (70-220) 179mg/dL (70-220) Urine Random Creatinine 22.90mg/dl (20-320) Urine Protein/Creatinine Ratio 4.36RATIO Urine Total Protein 100.0mg/dl (0.0-11.9) MARÍA ZHONG MD Apr 06, 2017 15:26
[2017-04-06] MEDS ORDERED: BISACODYL (EC) 5 MG TAB PO ONE (15:30)
--- NOTE | 2017-04-06 16:00 | CONS ---
Date/Time of Note Date/Time of Note DATE: 04/06/17 TIME: 15:55 Assessment/Plan Assessment/Plan Additional Assessment/Plan 87 yo female with 1) Shortness of breath 2) Hypoxia 3) Likely Aspiration 4) Baron vs CKD 5) Mixed acid base disorder- Improved 6) Elevated lactic acid- Resolved 7) Chronic HTN, Uncontrolled 8) Hypernatremia Likely CKD BP elevated, Norvasc 2.5mg bid Urine studies reveiwed Increase Free H20 intake. Thank you for the opportunity to participate in the care of ms [facility] Consultation Date/Type/Reason Admit Date/Time Apr 05, 2017 at 03:52 Initial Consult Date 04/05/17 Type of Consultation: Renal Referring Provider: JUAN HOLLAND 24 HR Interval Summary Free Text/Dictation NO new complaints Exam/Review of Systems Vital Signs Vitals Vital Signs Date Time Temp Pulse Resp B/P Pulse Ox O2 Delivery O2 Flow Rate FiO2 04/06/17 12:57 82 04/06/17 11:19 98.0 18 157/71 97 04/06/17 08:00 Nasal Cannula 2.0 Intake and Output 04/05/17 04/05/17 04/06/17 15:00 23:00 07:00 Intake Total 400 ml 50 ml Output Total 450 ml 1000 ml Balance -50 ml -950 ml Exam Constitutional: frail, No distress ENMT: mucosa pink and moist Neck: No jvd Respiratory: No diminished breath sounds, No labored breathing Cardiovascular: regular rate and rhythm, No edema Gastrointestinal: soft Extremities: clubbing, No edema Neurological: lethargic Skin: No diaphoresis Results Result Diagram: 04/06/17 0758 04/06/17 0757 Results 24 hrs Laboratory Tests Test 04/05/17 17:55 04/05/17 23:10 04/06/17 02:27 04/06/17 07:57 Bedside Glucose 187 192 151 Sodium Level 145 H Potassium Level 4.1 Chloride Level 105 Carbon Dioxide Level 30 Anion Gap 14 Blood Urea Nitrogen 26 H Creatinine 1.37 H Glucose Level 95 # Calcium Level 10.2 Magnesium Level 1.5 L Total Bilirubin 0.2 Direct Bilirubin 0.00 Indirect Bilirubin 0.2 Aspartate Amino Transf (AST/SGOT) 24 Alanine Aminotransferase (ALT/SGPT) 32 Alkaline Phosphatase 83 Total Protein 7.3 # Albumin 4.0 Globulin 3.30 H Albumin/Globulin Ratio 1.21 Triglycerides Level 103 Cholesterol Level 154 LDL Cholesterol, Calculated 82 HDL Cholesterol 51 Cholesterol/HDL Ratio 3.0 Test 04/06/17 07:58 04/06/17 08:14 04/06/17 08:30 04/06/17 12:08 White Blood Count 11.9 #H Red Blood Count 3.44 L Hemoglobin 10.2 L Hematocrit 29.8 L Mean Corpuscular Volume 86.6 Mean Corpuscular Hemoglobin 29.7 Mean Corpuscular Hemoglobin Concent 34.2 Red Cell Distribution Width 13.5 Platelet Count 234 Mean Platelet Volume 9.6 Neutrophils % 82.9 H Lymphocytes % 9.0 L Monocytes % 7.5 Eosinophils % 0.0 Basophils % 0.1 Nucleated Red Blood Cells % 0.0 Neutrophils # 9.8 H Lymphocytes # 1.1 Monocytes # 0.9 Eosinophils # 0.0 Basophils # 0.0 Nucleated Red Blood Cells # 0.0 Hemoglobin A1c 6.1 H Bedside Glucose 104 179 Urine Random Creatinine 22.90 Urine Protein/Creatinine Ratio 4.36 Urine Total Protein 100.0 H Medications Medications Current Medications Ondansetron HCl (Zofran Inj) 4 mg Q6H PRN IV NAUSEA AND/OR VOMITING; Start 04/05/17 at 05:00 Acetaminophen (Tylenol Tab) 650 mg Q6H PRN PO PAIN LEVEL 1-3 OR FEVER; Start 04/05/17 at 05:00 Morphine Sulfate (morphine) 2 mg Q4H PRN IV PAIN LEVEL 7-10 Last administered on 04/06/17 03:06; Admin Dose 2 MG; Start 04/05/17 at 05:00 Heparin Sodium (Porcine) (Heparin (5000 Units/0.5 ml)) 5,000 unit Q12 SC Last administered on 04/06/17 08:20; Admin Dose 5,000 UNIT; Start 04/05/17 at 09:00 Diagnostic Test (Pha) (Accu-Chek) 1 ea 02 XX Last administered on 04/06/17 02: 36; Admin Dose 1 EA; Start 04/06/17 at 02:00 Insulin Glargine (Lantus) 10 unit QHS SC Last administered on 04/05/17 23:21; Admin Dose 10 UNIT; Start 04/05/17 at 21:00 Miscellaneous Information 1 ea NOTE XX ; Start 04/05/17 at 05:30 Glucose (Glutose) 15 gm Q15M PRN PO DECREASED GLUCOSE; Start 04/05/17 at 05:30 Glucose (Glutose) 22.5 gm Q15M PRN PO DECREASED GLUCOSE; Start 04/05/17 at 05: 30 Dextrose (D50w Syringe) 25 ml Q15M PRN IV DECREASED GLUCOSE; Start 04/05/17 at 05:30 Dextrose (D50w Syringe) 50 ml Q15M PRN IV DECREASED GLUCOSE; Start 04/05/17 at 05:30 Glucagon (Glucagen) 1 mg Q15M PRN IM DECREASED GLUCOSE; Start 04/05/17 at 05:30 Glucose 15 gm 15 gm Q15M PRN BUCCAL DECREASED GLUCOSE; Start 04/05/17 at 05:30 Levofloxacin/ Dextrose (Levaquin 250 Mg/ D5W 50 ml (Pmx)) 50 ml @ 100 mls/hr Q48H IVPB ; Start 04/07/17 at 10:00 Hydralazine HCl (Apresoline) 10 mg Q4H PRN IV ELEVATED SYSTOLIC BP Last administered on 04/06/17t 08:18; Admin Dose 10 MG; Start 04/06/17 at 04:30 PRATEEK PURVIS MD Apr 06, 2017 15:59
[2017-04-06] MEDS ORDERED: AMLODIPINE 2.5 MG TAB PO SCH (21:00)
[2017-04-07] MEDS ORDERED: LEVOFLOXACIN 250MG/D5W (PMX) 50 ML IVPB SCH (10:00)
== END 2017-04-06 18:35 | disposition home or self-care (01) | DRG 177 ==
LOC: E/R 01:13 → TEL 03:52
PROVIDERS: ADMIT Internal Medicine; ATTEND Internal Medicine
DX: J69.0 Pneumonitis due to inhalation of food and vomit (principal); J96.01 Acute respiratory failure with hypoxia; N17.9 Acute kidney failure, unspecified; E87.0 Hyperosmolality and hypernatremia; E11.9 Type 2 diabetes mellitus without complications; D64.9 Anemia, unspecified; I50.9 Heart failure, unspecified; I11.0 Hypertensive heart disease with heart failure; F03.90 Unspecified dementia, unspecified severity, without behavioral disturbance, psychotic disturbance, mood disturbance, and anxiety; E78.5 Hyperlipidemia, unspecified; M10.9 Gout, unspecified; I25.10 Atherosclerotic heart disease of native coronary artery without angina pectoris
CPT/HCPCS: 36415; 36600; 71010; 80053; 80061; 81001; 81003; 82570; 82803; 82962; 83036; 83605; 83735; 84484; 85025; 85610; 85730; 87040; 87086; 92610; 93005; 93306; 94664; 96372; 96374; 96375; 97110; 97116; 97162; 97530; A4310; J0360; J1644; J1815; J1956; J2270; J2920; J7030; P9612